=== PATIENT | female | born 1960 | race Two or more races ===

== ENCOUNTER 2021-03-20 13:38 | Emergency (ER) | payer SELFPAY ==
[~2021-03-20] VITALS: Ht 149.9 cm; Wt 49.0 kg
[2021-03-20 13:50] VITALS: BP 152/92
[2021-03-20] MEDS ORDERED: SODIUM CHLORIDE 0.9% 1,000 ML IV ONE ×2 (14:00)
[2021-03-20 14:03] LABS: Basophils # (auto) 0.1 10 ^3/uL (0-0.2); Basophils % (auto) 0.7 % (0.0-2.0); Eosinophils # (auto) 0.1 10 ^3/uL (0-0.8); Eosinophils % (auto) 0.9 % (0.0-7.0); Hematocrit 41.9 % (36.0-46.0); Hemoglobin 14.1 g/dL (12.2-16.2); Lymphocytes # (auto) 0.8 10 ^3/uL (0.4-5.4); Lymphocytes % (auto) 8.9 % (10.0-50.0); Mean Corpuscular Hemoglobin 33.3 pg (28.0-32.0); Mean Corpuscular Hgb Conc. 33.8 g/dL (32.0-36.0); Mean Corpuscular Volume 98.7 fL (80.0-100.0); Monocytes # (auto) 1.1 10 ^3/uL (0-1.3); Monocytes % (auto) 12.3 % (0.0-12.0); Neutrophils # (auto) 6.9 10 ^3/uL (1.6-8.6); Neutrophils % (auto) 77.2 % (37.0-80.0); Nucleated Red Blood Cells % 0.1 %; Red Blood Cells 4.25 10^6/uL (4.0-5.20); Red Cell Distribution Width 13.6 % (11.8-14.3); White Blood Cell 8.9 10^3/uL (4.4-10.8)
[2021-03-20 14:37] LABS: Albumin 3.8 g/dL (3.4-5.0); Anion Gap 7 (5-15); Blood Urea Nitrogen 11 mg/dL (7-18); Carbon Dioxide 25 mmol/L (21-32); Chloride 105 mmol/L (98-107); Glucose 104 mg/dL (74-106); Potassium 4.4 mmol/L (3.5-5.1); Sodium 137 mmol/L (136-145)
[2021-03-20 14:42] LABS: Alanine Aminotransferase 23 U/L (13-56); Alkaline Phosphatase 65 U/L (45-117); Aspartate Aminotransferase 13 U/L (15-37); BUN/Creatinine Ratio 12.8; Bilirubin, Total 0.6 mg/dL (0.2-1.0); GFR African American 87 mL/min; GFR Non-African American 72 mL/min; Total Protein 7.1 g/dL (6.4-8.2)
== END 2021-03-20 15:05 | disposition left against medical advice (07) ==
LOC: EDUNIT# 13:38 → EDBD 13:38 → ER 13:38
DX: R55 Syncope and collapse (principal); E86.0 Dehydration; R00.0 Tachycardia, unspecified; E78.00 Pure hypercholesterolemia, unspecified; F41.9 Anxiety disorder, unspecified
CPT/HCPCS: 36415; 70450; 80053; 84484; 85025; 93005

== ENCOUNTER 2023-07-07 23:18 | Emergency (ER) | payer OTHER ==
[~2023-07-07] VITALS: Ht 152.4 cm; Wt 47.7 kg
[2023-07-07 23:56] LABS: Basophils # (auto) 0 10 ^3/uL (0-0.2); Basophils % (auto) 0.1 % (0.0-2.0); Eosinophils # (auto) 0.1 10 ^3/uL (0-0.8); Eosinophils % (auto) 0.9 % (0.0-7.0); Hematocrit 39.9 % (36.0-46.0); Hemoglobin 13.2 g/dL (12.2-16.2); Lymphocytes # (auto) 0.3 10 ^3/uL (0.4-5.4); Lymphocytes % (auto) 2.1 % (10.0-50.0); Mean Corpuscular Hemoglobin 32.7 pg (28.0-32.0); Monocytes # (auto) 1.2 10 ^3/uL (0-1.3); Monocytes % (auto) 8.8 % (0.0-12.0); Neutrophils # (auto) 11.5 10 ^3/uL (1.6-8.6); Neutrophils % (auto) 88.1 % (37.0-80.0); Red Blood Cells 4.03 10^6/uL (4.0-5.20); Red Cell Distribution Width 14.3 % (11.8-14.3); White Blood Cell 13.1 10^3/uL (4.4-10.8)
[2023-07-08 00:07] LABS: INR 1.01 (0.9-1.15); Partial Thromboplastin Time 24.7 SEC (24.5-34.5); Prothrombin Time 10.6 sec (9.3-11.8)
[2023-07-08 00:08] LABS: Alanine Aminotransferase 11 U/L (7-40); Albumin 4.1 g/dL (3.2-4.8); Alkaline Phosphatase 64 U/L (46-116); Anion Gap 7 (5-15); Aspartate Aminotransferase 14 U/L (13-40); BUN/Creatinine Ratio 9.6 (10.0-20.0); Blood Urea Nitrogen 10 mg/dL (9-23); Calcium 8.4 mg/dL (8.7-10.4); Carbon Dioxide 24 mmol/L (20-30); Chloride 106 mmol/L (98-107); Glucose 131 mg/dL (74-106); Potassium 3.7 mmol/L (3.5-5.1); Sodium 137 mmol/L (136-145)
[2023-07-08 00:09] LABS: Bilirubin, Total 0.7 mg/dL (0.2-1.0)
[2023-07-08 00:54] VITALS: TEMP 98.1
[2023-07-08] MEDS ORDERED: LACTATED RINGER'S 1,000 ML IV ONE (02:15)
[2023-07-08 04:52] LABS: Urine Bacteria FEW /hpf (None Seen); Urine Blood Negative /uL (Negative); Urine Clarity HAZY (Clear); Urine Color Orange (Yellow); Urine Hyaline Cast MOD /lpf (0 - 2); Urine Mucus FEW (None Seen); Urine Protein, UAD 1+ (Negative); Urine Specific Gravity 1.014 (1.001-1.035); Urine WBC 53 /hpf (0 - 5); Urine pH 6.5 (5.0-8.0)
[2023-07-08 05:12] VITALS: BP 147/71
[2023-07-08] MEDS: MAGNESIUM SULFATE 1GM/100ML 100 ML IV SCH ×2 (05:18→06:57)
[2023-07-08] MEDS ORDERED: CEPH250C PO (06:06)
[2023-07-08] MEDS ORDERED: cefTRIAXone 1GM/50ML D5W 50 ML IV ONE (06:15)
[2023-07-08 06:22] VITALS: PULSE 95; RESP 14; O2SAT 96
== END 2023-07-08 06:02 | disposition home or self-care (01) ==
LOC: ER 23:18 → EDBD 23:18 → ER 07-08 06:02
DX: E86.0 Dehydration (principal); N39.0 Urinary tract infection, site not specified; F12.10 Cannabis abuse, uncomplicated; E78.5 Hyperlipidemia, unspecified
CPT/HCPCS: 36415; 71045; 80053; 81001; 83605; 83880; 84484; 85025; 85610; 85730; 93005; 96365; 96368; 99285; J0696; J3475